=== PATIENT | female | born 1950 | race Caucasian/White ===

== ENCOUNTER 2017-03-01 11:49 | Inpatient (IN) | payer SELFPAY ==
[~2017-03-01] VITALS: Ht 177.8 cm; Wt 90.3 kg
[2017-03-01] VITALS (8 sets, daily range): BP systolic 127–157; BP diastolic 55–77; PULSE 63–71; RESP 18–20; TEMP 96.9–98.3; O2SAT 91–96
[2017-03-01] MEDS ORDERED: METO50TA PO (12:07)
[2017-03-01] MEDS ORDERED: HYZA100T6 PO (12:07)
[2017-03-01] MEDS ORDERED: ASPI325T PO (12:07)
[2017-03-01] MEDS ORDERED: SODIUM CHLOR 0.9% 1000 ML INJ 1,000 ML IV SCH (12:08)
[2017-03-01] MEDS ORDERED: ONDANSETRON HCL 4 MG/2 ML VIAL IVP ONE (12:15)
[2017-03-01 12:22] LABS: AUTOMATED NEUTROPHIL # 18.8 TH/MM3 (1.8-7.7); BASOPHIL % 0.1 % (0.0-2.0); EOSINOPHIL % 0.2 % (0.0-4.0); HEMATOCRIT 30.5 % (35.0-46.0); LYMPHOCYTE # 1.3 TH/MM3 (1.0-4.8); MEAN CELL VOLUME 83.4 FL (80.0-100.0); MEAN CORPUSCULAR HGB CONC 33.5 % (32.0-36.0); MONO % 7.6 % (0.0-8.0); NEUT % 86.1 % (16.0-70.0); PLATELET COUNT 424 TH/MM3 (150-450); RED BLOOD COUNT 3.66 MIL/MM3 (4.00-5.30); RED CELL DISTRIBUTION WIDTH 13.2 % (11.6-17.2); WHITE BLOOD COUNT 21.8 TH/MM3 (4.0-11.0)
[2017-03-01 12:25] LABS: HEMO FLAGS AUTO DIFF
[2017-03-01 12:45] LABS: SCAN/DIFF AUTO DIFF CONFIRMED
--- NOTE | 2017-03-01 12:45 | PD ---
HPI Chief Complaint: GI Complaint Time Seen by Provider: 12:40 Travel History International Travel<30 days: No Contact w/Intl Traveler<30days: No Traveled to known affect area: No History of Present Illness HPI 66-year-old female that presents to the ED for evaluation of nausea vomiting and cold-like symptoms. Per patient she's had this for about 3 weeks now. Patient with a month ago she quit smoking. Per patient she was initially very short of breath and now she is better. Per patient she has no chest pain or abdominal pain at any time. Per patient she feels nauseous and with eating and she's not been able to keep anything other than fluids. She denies any dysphagia. She denies any abdominal discomfort. She does state having diarrhea but she believes that this is more because she is for the most part eating and liquid diet. She states that currently she has no pain but she feels weak and dehydrated. No history of diabetes. No urinary symptoms. No sick contacts. She is originally from [place] and came here to visit as one of her uncles broke his hip and she came here to see him. She states that the cough is improving as well as the cold-like symptoms with the nausea and vomiting continues. She was actually going to go [place] today but she feels weak and she came here to get evaluated because of it. Allergy to iodine. She has been taking [id number] Mucinex with minimal relief. [facility] Past Medical History Diminished Hearing: No Hypertension: Yes Influenza Vaccination: Yes ?: Not Past Surgical History Appendectomy: Yes Social History Alcohol Use: No Tobacco Use: No Allergies-Medications (Allergen,Severity, Reaction): Coded Allergies: iodine (Verified Allergy, Severe, Rash, 03/01/17) HIVE AND ITCHING Reported Meds & Prescriptions Reported Meds & Active Scripts Active Reported Aspirin 325 Mg Tab 325 Mg PO DAILY Metoprolol Tartrate 50 Mg Tab 50 Mg PO DAILY Hyzaar (Losartan-Hydrochlorothiazide) 100-25 Mg Tab 1 Tab PO DAILY Review of Systems Except as stated in HPI: all other systems reviewed are Neg Physical Exam Narrative GENERAL: SKIN: Warm and dry. HEAD: Atraumatic. Normocephalic. EYES: Pupils equal and round. No scleral icterus. No injection or drainage. ENT: No nasal bleeding or discharge. Mucous membranes pink and moist. Tongue is midline. No uvula deviation. NECK: Trachea midline. No JVD. CARDIOVASCULAR: Regular rate and rhythm. No murmurs, S3, S4. RESPIRATORY: No accessory muscle use. Clear to auscultation. Breath sounds equal bilaterally. GASTROINTESTINAL: Abdomen soft, non-tender, nondistended. Hepatic and splenic margins not palpable. MUSCULOSKELETAL: Extremities without clubbing, cyanosis, or edema. No obvious deformities. Full range of motion of the upper and lower extremities bilaterally. 2+ pulses bilaterally. NEUROLOGICAL: Awake and alert. No obvious cranial nerve deficits. Motor grossly within normal limits. Five out of 5 muscle strength in the arms and legs. Normal speech. PSYCHIATRIC: Appropriate mood and affect; insight and judgment normal. Data Data Last Documented VS Vital Signs Date Time Temp Pulse Resp B/P (MAP) Pulse Ox O2 Delivery O2 Flow Rate FiO2 03/01/17 14:32 63 18 141/55 (83) 96 Nasal Cannula 2.00 03/01/17 11:59 98.3 Orders Orders Complete Blood Count With Diff (03/01/17 12:08) Comprehensive Metabolic Panel (03/01/17 12:08) Lipase (03/01/17 12:08) Lactic Acid (03/01/17 12:08) Urinalysis - C+S If Indicated (03/01/17 12:08) Iv Access Insert/Monitor (03/01/17 12:08) Ecg Monitoring (03/01/17 12:08) Oximetry (03/01/17 12:08) Ondansetron Inj (Zofran Inj) (03/01/17 12:15) Sodium Chlor 0.9% 1000 Ml Inj (Ns 1000 M (03/01/17 12:08) Chest, Single Ap (03/01/17 12:08) Influenzae A/B Antigen (03/01/17 12:08) Sodium Chlor 0.9% 1000 Ml Inj (Ns 1000 M (03/01/17 13:00) Potassium Chloride (Kcl) (03/01/17 13:00) Magnesium Sulfate 1 Gm Premix (Magnesium (03/01/17 13:00) Electrocardiogram (03/01/17 ) Potassium Chloride (Kcl) (03/01/17 13:15) Troponin I (03/01/17 13:08) Ckmb (Isoenzyme) Profile (03/01/17 13:08) Potassium Chlor 10 Meq Premix (Kcl 10 Me (03/01/17 13:15) Ventilation & Perfusion Scan (03/01/17 ) Ct Thorax/ Chest Wo Iv Contras (03/01/17 ) Us Leg Venous Doppler Bilat (03/01/17 ) Blood Culture (03/01/17 13:29) D-Dimer (03/01/17 13:44) Azithromycin Inj (Zithromax Inj) (03/01/17 13:45) Ceftriaxone Inj (Rocephin Inj) (03/01/17 13:45) Admit Order (Ed Use Only) (03/01/17 14:44) Labs Laboratory Tests Test 03/01/17 12:10 03/01/17 12:14 D-Dimer Quantitative (PE/DVT) 1.27 MG/L FEU White Blood Count 21.8 TH/MM3 Red Blood Count 3.66 MIL/MM3 Hemoglobin 10.2 GM/DL Hematocrit 30.5 % Mean Corpuscular Volume 83.4 FL Mean Corpuscular Hemoglobin 28.0 PG Mean Corpuscular Hemoglobin Concent 33.5 % Red Cell Distribution Width 13.2 % Platelet Count 424 TH/MM3 Mean Platelet Volume 7.1 FL Neutrophils (%) (Auto) 86.1 % Lymphocytes (%) (Auto) 6.0 % Monocytes (%) (Auto) 7.6 % Eosinophils (%) (Auto) 0.2 % Basophils (%) (Auto) 0.1 % Neutrophils # (Auto) 18.8 TH/MM3 Lymphocytes # (Auto) 1.3 TH/MM3 Monocytes # (Auto) 1.7 TH/MM3 Eosinophils # (Auto) 0.0 TH/MM3 Basophils # (Auto) 0.0 TH/MM3 CBC Comment AUTO DIFF Differential Comment AUTO DIFF CONFIRMED Blood Urea Nitrogen 27 MG/DL Creatinine 1.40 MG/DL Random Glucose 145 MG/DL Total Protein 7.9 GM/DL Albumin 2.3 GM/DL Calcium Level 8.7 MG/DL Alkaline Phosphatase 295 U/L Aspartate Amino Transf (AST/SGOT) 7 U/L Alanine Aminotransferase (ALT/SGPT) 15 U/L Total Bilirubin 0.4 MG/DL Sodium Level 133 MEQ/L Potassium Level 2.3 MEQ/L Chloride Level 93 MEQ/L Carbon Dioxide Level 31.4 MEQ/L Anion Gap 9 MEQ/L Estimat Glomerular Filtration Rate 38 ML/MIN Lactic Acid Level 1.3 mmol/L Total Creatine Kinase 26 U/L Troponin I LESS THAN 0.02 NG/ML Lipase 80 U/L MDM Medical Decision Making Medical Screen Exam Complete: Yes Emergency Medical Condition: Yes Medical Record Reviewed: Yes Interpretation(s) Influenza is negative CBC & BMP Diagram 03/01/17 12:14 Total Protein 7.9, Albumin 2.3 L, Calcium Level 8.7, Alkaline Phosphatase 295 H , Aspartate Amino Transf (AST/SGOT) 7 L, Alanine Aminotransferase (ALT/SGPT) 15 , Total Bilirubin 0.[address] depressions on V4-V6 per my attending Dr Jarquin. No ST elevation Last Impressions Chest X-Ray 03/01/17 1208 Signed Impressions: Service Date/Time: Wednesday, March 01, 2017 12:46 - CONCLUSION: Background lung changes characteristic of obstructive airways disease. No acute cardiopulmonary abnormality is identified. Peng Monsalve MD Last Impressions Chest X-Ray 03/01/17 1208 Signed Impressions: Service Date/Time: Wednesday, March 01, 2017 12:46 - CONCLUSION: Background lung changes characteristic of obstructive airways disease. No acute cardiopulmonary abnormality is identified. ePng Monsalve MD Chest CT 03/01/17 0000 Signed Impressions: Service Date/Time: Wednesday, March 01, 2017 13:49 - CONCLUSION: 1. There are COPD changes. There is tubular bronchiectasis with inflammatory appearing tree in bud infiltrate suggesting mucus impaction with inflammatory changes in the end in airway. Atypical pneumonia could also have this appearance as well. 2. 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 Benjie Cohen MD Differential Diagnosis Nausea and vomiting versus viral illness versus influenza versus pneumonia versus acute abdomen versus pancreatitis versus dehydration versus kidney failure versus nicotine withdrawal Narrative Course 66-year-old female that presents to the ED for evaluation of cold-like symptoms and nausea and vomiting. Patient was properly examined and was found to have signs and symptoms of unclear etiology at this time. He does appear to be likely viral in nature. Labs and imaging were ordered. Patient does look a little dehydrated she she will be given fluids as well as antiemetics IV. Labs and imaging showed mildly elevated monocyte count as well as low potassium. EKG was done because of this and shows some ST depressions. My attending Dr. Jarquin evaluated the patient with me and evaluated the patient and recommends cardiac enzymes as well as replenishment of potassium and CT as well as ultrasound and VQ scan to rule out PE as well as DVT secondary to recent history of travel and hypoxia. CT did shows inflammatory changes likely pneumonia. Aneurysm noted as well. Will admit to [facility]. patient told this and agrees. Case discussed with Dr Orozco who agrees to admission. Diagnosis Primary Impression: Pneumonia Qualified Codes: J18.9 - Pneumonia, unspecified organism Additional Impressions: Hypokalemia Hypoxia Admitting Information Admitting Physician Requests: Admit Roshan Alicia Mar 01, 2017 12:45
[2017-03-01 12:48] LABS: ALKALINE PHOSPHATASE 295 U/L (45-117); ALT (GPT) 15 U/L (10-53); ANION GAP 9 MEQ/L (5-15); AST (GOT) 7 U/L (15-37); BICARBONATE 31.4 MEQ/L (21.0-32.0); BLOOD UREA NITROGEN 27 MG/DL (7-18); CHLORIDE 93 MEQ/L (98-107); GLOMERULAR FILTRATION RATE 38 ML/MIN (>89); SODIUM (NA) 133 MEQ/L (136-145); TOTAL BILIRUBIN ADULT 0.4 MG/DL (0.2-1.0)
[2017-03-01 12:49] LABS: POTASSIUM 2.3 MEQ/L (3.5-5.1)
[2017-03-01] MEDS: MAGNESIUM SULFATE 1 GM PREMIX 100 ML IV SCH ×2 (12:57→14:04)
[2017-03-01] MEDS ORDERED: POTASSIUM CHLORIDE 10 MEQ CONTROLLED RELEASE TAB PO ONE (13:00)
[2017-03-01] MEDS ORDERED: SODIUM CHLOR 0.9% 1000 ML INJ 1,000 ML IV ONE (13:00)
[2017-03-01] MEDS ORDERED: POTASSIUM CHLOR 10 MEQ PREMIX 100 ML IV ONE (13:15)
[2017-03-01] MEDS ORDERED: POTASSIUM CHLORIDE 20 MEQ CONTROLLED RELEASE TAB PO ONE (13:15)
--- NOTE | 2017-03-01 13:15 | RADRPT ---
EXAM DATE/TIME: 03/01/2017 12:46 [facility] COMPARISON: No previous studies available for comparison. INDICATIONS : Nausea and vomiting. MEDICAL HISTORY : None. SURGICAL HISTORY : None. ENCOUNTER: Initial ACUITY: 3 weeks PAIN SCORE: 3/10 LOCATION: Bilateral chest FINDINGS: 2 AP views of the chest demonstrate a normal-sized cardiac silhouette. There is initial prominence an d lower lung zones with mild lucency in the upper lung zones. No effusion, consolidation, or pneumoth orax is identified. Bones and soft tissues demonstrate no acute abnormality. No free air is seen bene ath the hemidiaphragms. CONCLUSION: Background lung changes characteristic of obstructive airways disease. No acute cardiopulmonary abnor mality is identified. Peng Monsalve MD on March 01, 2017 at 13:12 Board Certified Radiologist. This report was verified electronically.
--- NOTE | 2017-03-01 13:23 | PD ---
Physical Exam Date Seen by Provider: Mar 01, 2017 Data Data Last Documented VS Vital Signs Date Time Temp Pulse Resp B/P (MAP) Pulse Ox O2 Delivery O2 Flow Rate FiO2 03/01/17 12:21 68 18 127/60 (82) 96 Nasal Cannula 2.00 03/01/17 11:59 98.3 Orders Orders Complete Blood Count With Diff (03/01/17 12:08) Comprehensive Metabolic Panel (03/01/17 12:08) Lipase (03/01/17 12:08) Lactic Acid (03/01/17 12:08) Urinalysis - C+S If Indicated (03/01/17 12:08) Iv Access Insert/Monitor (03/01/17 12:08) Ecg Monitoring (03/01/17 12:08) Oximetry (03/01/17 12:08) Ondansetron Inj (Zofran Inj) (03/01/17 12:15) Sodium Chlor 0.9% 1000 Ml Inj (Ns 1000 M (03/01/17 12:08) Chest, Single Ap (03/01/17 12:08) Influenzae A/B Antigen (03/01/17 12:08) Sodium Chlor 0.9% 1000 Ml Inj (Ns 1000 M (03/01/17 13:00) Electrocardiogram (03/01/17 ) Potassium Chloride (Kcl) (03/01/17 13:00) Magnesium Sulfate 1 Gm Premix (Magnesium (03/01/17 13:00) Electrocardiogram (03/01/17 ) Potassium Chloride (Kcl) (03/01/17 13:15) Troponin I (03/01/17 13:08) Ckmb (Isoenzyme) Profile (03/01/17 13:08) Potassium Chlor 10 Meq Premix (Kcl 10 Me (03/01/17 13:15) Ventilation & Perfusion Scan (03/01/17 ) Labs Laboratory Tests Test 03/01/17 12:14 White Blood Count 21.8 TH/MM3 Red Blood Count 3.66 MIL/MM3 Hemoglobin 10.2 GM/DL Hematocrit 30.5 % Mean Corpuscular Volume 83.4 FL Mean Corpuscular Hemoglobin 28.0 PG Mean Corpuscular Hemoglobin Concent 33.5 % Red Cell Distribution Width 13.2 % Platelet Count 424 TH/MM3 Mean Platelet Volume 7.1 FL Neutrophils (%) (Auto) 86.1 % Lymphocytes (%) (Auto) 6.0 % Monocytes (%) (Auto) 7.6 % Eosinophils (%) (Auto) 0.2 % Basophils (%) (Auto) 0.1 % Neutrophils # (Auto) 18.8 TH/MM3 Lymphocytes # (Auto) 1.3 TH/MM3 Monocytes # (Auto) 1.7 TH/MM3 Eosinophils # (Auto) 0.0 TH/MM3 Basophils # (Auto) 0.0 TH/MM3 CBC Comment AUTO DIFF Differential Comment AUTO DIFF CONFIRMED Blood Urea Nitrogen 27 MG/DL Creatinine 1.40 MG/DL Random Glucose 145 MG/DL Total Protein 7.9 GM/DL Albumin 2.3 GM/DL Calcium Level 8.7 MG/DL Alkaline Phosphatase 295 U/L Aspartate Amino Transf (AST/SGOT) 7 U/L Alanine Aminotransferase (ALT/SGPT) 15 U/L Total Bilirubin 0.4 MG/DL Sodium Level 133 MEQ/L Potassium Level 2.3 MEQ/L Chloride Level 93 MEQ/L Carbon Dioxide Level 31.4 MEQ/L Anion Gap 9 MEQ/L Estimat Glomerular Filtration Rate 38 ML/MIN Lactic Acid Level 1.3 mmol/L Lipase 80 U/L MDM Medical Record Reviewed: Yes Supervised Visit with LES: Yes Differential Diagnosis Differential includes PE, pneumonia, electrolyte abnormality, ACS, arrhythmia Narrative Course I, Dr. Jarquin, have reviewed the advance practice practitioner's documentation and am in agreement, met with the patient face to face, made the diagnosis, and the medical decision making was done by me. *My assessment and Findings: Patient is a 66-year-old female who presents to emergency room with complaints of nausea, vomiting, cough and congestion. Patient reports that symptoms have been ongoing for the past 3 weeks, patient reports that she recently drove from [place] to [place] to take care of her sick family member. Patient reports that she has been feeling short of breath, she did quit smoking cigarettes 3 weeks ago, oxygen dependent. Patient reports that she has been having shortness breath at rest as well as on exertion. Patient denies any chest pain , abdominal pain this time, reports increased nausea and vomiting decreased appetite. Vital Signs Date Time Temp Pulse Resp B/P (MAP) Pulse Ox O2 Delivery O2 Flow Rate FiO2 03/01/17 12:21 68 18 127/60 (82) 96 Nasal Cannula 2.00 03/01/17 11:59 98.3 68 18 157/68 (36) 91 Patient is hypoxic with a pulse ox of 91% on room air, she is not oxygen dependent. Patient with ST segment depressions anterolaterally, patient with no history of RI, ACS, she does report history of hypertension. Patient also with a potassium of 2.3. Patient's potassium will be replenished. Patient with no chest pain this time, Trops were ordered as she does have ST segment depressions with no prior EKG to compare. Patient has hypoxic on room air, VQ scan as well as Doppler ultrasounds ordered to rule out PE/DVT as patient does have an iodine allergy. Ultimate disposition for patient is admission to the hospital. Patient does have a 21,800 white count. lactate 1.3 - chest xray with no obvious infiltrate. Ct of chest ordered for further evaluation of her symptoms Soo Jarquin DO Mar 01, 2017 13:23
[2017-03-01 13:34] LABS: CREATINE KINASE 26 U/L (26-192)
[2017-03-01] MEDS ORDERED: cefTRIAXone INJ 1,000 MG in SODIUM CHLORIDE 0.9% INJ 100 ML IV ONE (13:45)
[2017-03-01] MEDS ORDERED: AZITHROMYCIN INJ 500 MG in SODIUM CHLOR 0.9% 250 ML INJ 250 ML IV ONE (13:45)
--- NOTE | 2017-03-01 14:07 | RADRPT ---
EXAM DATE/TIME: 03/01/2017 13:49 [facility] COMPARISON: CHEST SINGLE AP, March 01, 2017, 12:46. INDICATIONS : Nausea, vomiting and fever. RADIATION DOSE: 13.27 CTDIvol (mGy) MEDICAL HISTORY : Hypertension. SURGICAL HISTORY : Appendectomy. ENCOUNTER: Initial ACUITY: 3 weeks PAIN SCALE: 3/10 LOCATION: chest TECHNIQUE: Volumetric scanning of the chest was performed. Using automated exposure control and adjustment of t he mA and/or kV according to patient size, radiation dose was kept as low as reasonably achievable to obtain optimal diagnostic quality images. DICOM format image data is available electronically for r eview and comparison. Follow-up recommendations for detected pulmonary nodules are based at a minimum on nodule size and pa tient risk factors according to Fleischner Society Guidelines. FINDINGS: LUNGS: The examination demonstrates moderate tubular bronchiectasis involving both the upper and lower lobes . There is interstitial prominence with a tree in bud appearance of the interstitium. Findings would be most suggestive of COPD changes with bronchiectasis and mucus impaction though atypical mycobacter ial infection can have this appearance as well. No suspicious mass lesions are noted within the pulmo nary parenchyma. PLEURAE: There is no pleural thickening or pleural effusion. MEDIASTINUM: The heart is normal in size. There is atherosclerotic plaquing in the coronary arteries. The aortic a rch is densely calcified and aneurysmal measuring 3.4 cm. The descending thoracic aorta is aneurysmal in its mid segment measuring 3.6 cm. The aorta measures 3.9 cm at the diaphragmatic hiatus. No signi ficant hilar or mediastinal adenopathy is seen. AXILLAE: Within normal limits. No lymphadenopathy. MUSCULOSKELETAL: There are degenerative changes within the thoracic spine. MISCELLANEOUS: The visualized upper abdominal organs demonstrate no acute abnormality. CONCLUSION: 1. There are COPD changes. There is tubular bronchiectasis with inflammatory appearing tree in bud in filtrate suggesting mucus impaction with inflammatory changes in the end in airway. Atypical pneumoni a could also have this appearance as well. 2. 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 Benjie Cohen MD on March 01, 2017 at 14:00 Board Certified Radiologist. This report was verified electronically.
--- NOTE | 2017-03-01 14:43 | RADRPT ---
EXAM DATE/TIME: 03/01/2017 14:07 [facility] COMPARISON: No previous studies available for comparison. INDICATIONS : Shortness of breath. MEDICAL HISTORY : Hypertension. SURGICAL HISTORY : Appendectomy. ENCOUNTER: Initial ACUITY: 2 day PAIN SCORE: 0/10 LOCATION: Bilateral legs. TECHNIQUE: Venous ultrasound of the left and right leg was performed from the inguinal ligament to the proximal calf. Real-time, color Doppler and spectral tracing, compression and augmentation techniques were us ed. FINDINGS: RIGHT LEG: There is normal compressibility of the deep venous system from the inguinal region to the proximal ca lf. No echogenic clot is seen in the lumen of the common femoral, femoral, popliteal, and posterior tibial veins. There is a normal response of the venous system to proximal and distal augmentation an d respiration. LEFT LEG: There is normal compressibility of the deep venous system from the inguinal region to the proximal ca lf. No echogenic clot is seen in the lumen of the common femoral, femoral, popliteal, and posterior tibial veins. There is a normal response of the venous system to proximal and distal augmentation an d respiration. CONCLUSION: No DVT in either lower extremity. Ethan Bravo MD on March 01, 2017 at 14:41 Board Certified Radiologist. This report was verified electronically.
[2017-03-01] MEDS ORDERED: RESP: ALBUTEROL 2.5 MG/IPRATROPIUM 0.5 MG NEB (PRN) INH (14:45)
[2017-03-01] MEDS ORDERED: SODIUM CHLORIDE 0.9% FLUSH 10 ML FLUSH IV FLUSH PRN (14:45)
[2017-03-01] MEDS ORDERED: LEVOFLOXACIN 750 MG PREMIX INJ 150 ML IV SCH (15:00)
--- NOTE | 2017-03-01 15:40 | RADRPT ---
EXAM DATE/TIME: 03/01/2017 14:53 [facility] COMPARISON: US LEG BILATERAL VENOUS DOPPLER, March 01, 2017, 14:07. CHEST SINGLE AP, March 01, 2017, 12:46. EXTERNAL COMPARISON : INDICATIONS : Dyspnea. Pneumonia. DOSE: 8.5 mCi Tc99m MAA IV 1.2 mCi Tc99m DTPA aerosol MEDICAL HISTORY : Hypertension. SURGICAL HISTORY : Appendectomy. ENCOUNTER: Initial ACUITY: 3 weeks PAIN SCALE: 0/10 LOCATION: chest TECHNIQUE: Following five minutes of tidal breathing of DTPA aerosol, planar images of the lungs were performed in eight projections. The patient was then injected with MAA, and eight-view perfusion scan was perf ormed. FINDINGS: There is a heterogeneous distribution of aerosol delivery to the lungs with clumping of activity in t he large airways likely related to obstructive airways disease. There is focal decreased of ventilati on involving the superior aspect of the right lower lobe and questionable segmental defect in the lef t upper lobe. There is also possible left lower lobe decreased ventilation The perfusion lung scan demonstrates decreased perfusion in the right lower lobe and in the left uppe r lobe. There is also decreased perfusion in the left lower lobe on the LPO image. Recent chest x-ray demonstrates clear lungs with changes of obstructive airways disease/emphysema. CONCLUSION: 2 and possibly 3 matched defects are identified. Findings are intermediate probability for PE. Peng Monsalve MD on March 01, 2017 at 15:33 Board Certified Radiologist. This report was verified electronically.
[2017-03-01 15:42] LABS: GLUCOSE,URINE NEG (NEG); KETONE, URINE NEG (NEG); NITRITE,URINE NEG (NEG); PH, URINE 5.5 (5.0-8.5)
[2017-03-01 15:46] LABS: BLOOD, URINE TRACE (NEG)
[2017-03-01 15:50] LABS: URINE COLOR YELLOW (YELLW/STRAW)
[2017-03-01 15:51] LABS: COMMENT (UR) CULT NOT INDICATED; CULTURE IF INDICATED CULT NOT INDICATED; RBC, URINE 0-3 /hpf (0-3); SQUAMOUS EPITHELIAL CELL URINE 0-5 /hpf (0-5)
[2017-03-01] MEDS ORDERED: metroNIDAZOLE 500 MG INJ 100 ML IV SCH (16:00)
[2017-03-01] MEDS: RESP: ALBUTEROL 2.5 MG/IPRATROPIUM 0.5 MG NEB (SCH) INH ×2 (16:02→21:17)
[2017-03-01] MEDS ORDERED: Vancomycin Consult Pharmacy 1 EA OTHER SCH (16:30)
[2017-03-01] MEDS ORDERED: VANCOMYCIN INJ 1,000 MG in SODIUM CHLOR 0.9% 250 ML INJ 250 ML IV ONE (16:30)
--- NOTE | 2017-03-01 16:30 | HHI.HP ---
[facility] Service [place] [facility] Primary Care Physician Non-Staff Admission Diagnosis acute pneumonia, hypoxia, hypokalemia Diagnoses: (1) Healthcare-associated pneumonia Diagnosis: Principal (2) Hypoxia Diagnosis: Principal (3) Hypokalemia Diagnosis: Principal (4) Acute kidney injury Diagnosis: Principal (5) Leucocytosis Diagnosis: Principal Chief Complaint: Sinus congestion, cough, phlegm production, nausea, vomiting, weakness Travel History International Travel<30 Days: No Contact w/Intl Traveler <30 Da: No Traveled to Known Affected Are: No Sepsis Criteria SIRS Criteria (2 or more): WBC > 43795, < 4000 or > 10% bands Sepsis Criteria (SIRS+source): Infect source susp/known History of Present Illness Written by Harsh Martin, acting as scribe for Dr. Orozco on 03/01/17 at 16: 09. 66-year-old female with known history of hypertension, stroke, tobacco use who presented to hospital because of flulike symptoms to include sinus congestion, cough, phlegm production, weakness, fever, nausea, vomiting, diaphoresis. Patient states that she came down to stay with her uncle and he had fallen and fractured his hip. She has been going and visiting him in the facility 2 times a day since he fell. Her symptoms started approximately 3 weeks ago. Over the last 2-3 days she has been experiencing worsening upper respiratory symptoms and constitutional symptoms to include sinus congestion, cough with yellow phlegm production, weakness, nausea, vomiting, diarrhea, fever. Patient has been using Mucinex without any significant improvement. Patient indicates that she has had nausea and vomiting to the point where she can only tolerate liquids at this time. She does not eat anything solid for 2- 3 days. She has developed watery stools. Patient had workup done emergency department found to have multiple medical illnesses with hypoxia, pneumonia, leukocytosis, acute kidney injury. Patient significantly ill clinically and will be admitted for further evaluation. IV antibiotics. Review of Systems Constitutional: COMPLAINS OF: Fever Ears, nose, mouth, throat: COMPLAINS OF: Running Nose, Sinus Pain Respiratory: COMPLAINS OF: Cough, Sputum production Gastrointestinal: COMPLAINS OF: Diarrhea, Nausea, Vomiting Except as stated in HPI: all other systems reviewed are Neg Past Family Social History Past Medical History Hypertension Stroke Past Surgical History Appendectomy at age 21 Reported Medications Reported Meds & Active Scripts Active Reported Aspirin 325 Mg Tab 325 Mg PO DAILY Metoprolol Tartrate 50 Mg Tab 50 Mg PO DAILY Hyzaar (Losartan-Hydrochlorothiazide) 100-25 Mg Tab 1 Tab PO DAILY Allergies: Coded Allergies: iodine (Verified Allergy, Severe, Rash, 03/01/17) HIVE AND ITCHING Family History Reviewed is significant for father with prostate cancer. Aunt with diabetes Social History Patient quit smoking 1 month ago, prior to that she smoked one pack a cigarettes a day for 40 years. Denies any alcohol or illicit drugs Physical Exam Vital Signs Vital Signs Date Time Temp Pulse Resp B/P (MAP) Pulse Ox O2 Delivery O2 Flow Rate FiO2 03/01/17 16:05 92 Nasal Cannula 2.00 03/01/17 15:42 70 18 141/77 (98) 96 Nasal Cannula 2.00 03/01/17 14:32 63 18 141/55 (83) 96 Nasal Cannula 2.00 03/01/17 12:21 68 18 127/60 (82) 96 Nasal Cannula 2.00 03/01/17 12:10 78 91 Room Air 03/01/17 11:59 98.3 68 18 157/68 (97) 91 Physical Exam GENERAL: Well-developed, well-nourished, in no acute distress. alert and orientated HEENT: Head is normocephalic without any lesions or masses noted. Facial features are symmetric. Eyes: Pupils equal round reactive to light. Extraocular muscles are intact. Conjunctivae were clear. Oropharyngeal: Pharynx erythematous without any exudates. Tongue is midline without deviation. Buccal mucosa is dry without any masses or lesions NECK: Supple without any masses. Trachea midline no deviation. No JVD, no bruits are appreciated CARDIAC: Regular rhythm, regular rate. S1/S2 are heard. No murmurs gallops or rubs. LUNGS: Bibasilar diminished breath sounds with minimal wheeze. No rhonchi or rales. No use of accessory muscles on inspiration or expiration. ABDOMEN: Soft, nontender. Nondistended. Bowel sounds heard in all 4 quadrants. No organomegaly or masses. Negative rebound, negative guarding EXTREMITIES: No edema, pulses are equal bilaterally. No cyanosis or clubbing NEUROLOGY: Mood and affect appear appropriate. Cranial nerves II through XII grossly intact. Muscle strength 5/5 in upper and lower extremities bilaterally. Deep tendon reflexes are 2+ in upper and lower extremities bilaterally. Laboratory Laboratory Tests Test 03/01/17 12:10 03/01/17 12:14 03/01/17 15:35 D-Dimer Quantitative (PE/DVT) 1.27 White Blood Count 21.8 Red Blood Count 3.66 Hemoglobin 10.2 Hematocrit 30.5 Mean Corpuscular Volume 83.4 Mean Corpuscular Hemoglobin 28.0 Mean Corpuscular Hemoglobin Concent 33.5 Red Cell Distribution Width 13.2 Platelet Count 424 Mean Platelet Volume 7.1 Neutrophils (%) (Auto) 86.1 Lymphocytes (%) (Auto) 6.0 Monocytes (%) (Auto) 7.6 Eosinophils (%) (Auto) 0.2 Basophils (%) (Auto) 0.1 Neutrophils # (Auto) 18.8 Lymphocytes # (Auto) 1.3 Monocytes # (Auto) 1.7 Eosinophils # (Auto) 0.0 Basophils # (Auto) 0.0 CBC Comment AUTO DIFF Differential Comment AUTO DIFF CONFIRMED Blood Urea Nitrogen 27 Creatinine 1.40 Random Glucose 145 Total Protein 7.9 Albumin 2.3 Calcium Level 8.7 Alkaline Phosphatase 295 Aspartate Amino Transf (AST/SGOT) 7 Alanine Aminotransferase (ALT/SGPT) 15 Total Bilirubin 0.4 Sodium Level 133 Potassium Level 2.3 Chloride Level 93 Carbon Dioxide Level 31.4 Anion Gap 9 Estimat Glomerular Filtration Rate 38 Lactic Acid Level 1.3 Total Creatine Kinase 26 Troponin I LESS THAN 0.02 Lipase 80 Urine Color YELLOW Urine Turbidity CLEAR Urine pH 5.5 Urine Specific [place] 1.011 Urine Protein TRACE Urine Glucose (UA) NEG Urine Ketones NEG Urine Occult Blood TRACE Urine Nitrite NEG Urine Bilirubin NEG Urine Leukocyte Esterase NEG Urine RBC 0-3 Urine WBC 3-5 Urine Squamous Epithelial Cells 0-5 Microscopic Urinalysis Comment CULT NOT INDICATED Date/Time Source Procedure Growth Status 03/01/17 13:35 Blood Peripheral Aerobic Blood Culture Pending Received 03/01/17 13:35 Blood Peripheral Anaerobic Blood Culture Pending Received 03/01/17 12:10 Nasal Washing Influenza Types A,B Antigen ([facility]) - Final NEGATIVE FOR FLU A AND B ANTIGEN.... Complete 03/01/17 15:35 Urine Catheterized Urine Streptococcus pneumoniae Antigen (M Pending Received Result Diagram: 03/01/17 1214 03/01/17 1214 Imaging Last Impressions Chest X-Ray 03/01/17 1208 Signed Impressions: Service Date/Time: Wednesday, March 01, 2017 12:46 - CONCLUSION: Background lung changes characteristic of obstructive airways disease. No acute cardiopulmonary abnormality is identified. Pneg Monsalve MD Lung Scan-VQ Nuclear Medicine 03/01/17 0000 Signed Impressions: Service Date/Time: Wednesday, March 01, 2017 14:53 - CONCLUSION: 2 and possibly 3 matched defects are identified. Findings are intermediate probability for PE. Peng Monsalve MD Lower Extremity Ultrasound 03/01/17 0000 Signed Impressions: Service Date/Time: Wednesday, March 01, 2017 14:07 - CONCLUSION: No DVT in either lower extremity. Ethan Bravo MD Chest CT 03/01/17 0000 Signed Impressions: Service Date/Time: Wednesday, March 01, 2017 13:49 - CONCLUSION: 1. There are COPD changes. There is tubular bronchiectasis with inflammatory appearing tree in bud infiltrate suggesting mucus impaction with inflammatory changes in the end in airway. Atypical pneumonia could also have this appearance as well. 2. 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 Benjie Cohen MD Septic Shock Reassessment Heart: Regular rate and rhythm Lungs: Diminished Skin: Warm Peripheral Pulses: Bounding Right Radial Bounding Left Radial Capillary Refill: Brisk, <2 seconds Caprini VTE Risk Assessment Caprini VTE Risk Assessment: Mod/High Risk (score >= 2) Caprini Risk Assessment Model Point Value = 1 Point Value = 2 Point Value = 3 Point Value = 5 Age 41-60 Minor surgery BMI > 25 kg/m2 Swollen legs Varicose veins or History of unexplained or recurrent spontaneous Oral contraceptives or hormone replacement Sepsis (< 1 month) Serious lung disease, including pneumonia (< 1 month) Abnormal pulmonary function Acute myocardial infarction Congestive heart failure (< 1 month) History of inflammatory bowel disease Medical patient at bed rest Age 61-74 Arthroscopic surgery Major open surgery (> 45 min) Laparoscopic surgery (> 45 min) Malignancy Confined to bed (> 72 hours) Immobilizing plaster cast Central venous access Age >= 75 History of VTE Family history of VTE Factor V Leiden Prothrombin [id number] Lupus anticoagulant Anticardiolipin antibodies Elevated serum homocysteine Heparin-induced thrombocytopenia Other congenital or acquired thrombophilia Stroke (< 1 month) Elective arthroplasty Hip, pelvis, or leg fracture Acute spinal cord injury (< 1 month) Prophylaxis Regimen Total Risk Factor Score Risk Level Prophylaxis Regimen 0-1 Low Early ambulation 2 Moderate Order ONE of the following: *Sequential Compression Device (SCD) *Heparin 5000 units SQ BID 3-4 Higher Order ONE of the following medications: *Heparin 5000 units SQ TID *Enoxaparin/Lovenox 40 mg SQ daily (WT < 150 kg, CrCl > 30 mL/min) *Enoxaparin/Lovenox 30 mg SQ daily (WT < 150 kg, CrCl > 10-29 mL/min) *Enoxaparin/Lovenox 30 mg SQ BID (WT < 150 kg, CrCl > 30 mL/min) AND/OR *Sequential Compression Device (SCD) 5 or more Highest Order ONE of the following medications: *Heparin 5000 units SQ TID (Preferred with Epidurals) *Enoxaparin/Lovenox 40 mg SQ daily (WT < 150 kg, CrCl > 30 mL/min) *Enoxaparin/Lovenox 30 mg SQ daily (WT < 150 kg, CrCl > 10-29 mL/min) *Enoxaparin/Lovenox 30 mg SQ BID (WT < 150 kg, CrCl > 30 mL/min) AND *Sequential Compression Device (SCD) Assessment and Plan Assessment and Plan acute pneumonia CAP vs Healthcare associated pneumonia with hypoxia on a basis of emphesyma and tobaco abuse in light of recent frequent visit and stay sat hosital for visiting relative will initiate HCAP regimen with Vancomycin, Levaquin, Zosyn, Zithromax has been started in ED long-standing tobacco use, possible underlying chronic affective pulmonary disease CT abnormality which could indicate atypical pneumonia Await further cultures for narrowing of antibiotic coverage Obtain sputum culture, Legionella, strep pneumonia testing, Influenza testing was negative Duo nebs every 6 hours and every 4 hours as needed Robitussin-DM for cough Leukocytosis with left shift Likely secondary to pneumonia Continue follow blood cultures Acute kidney injury Continue IV fluids Monitor renal function Hypokalemia, severe Replace and continue to monitor Hypertension Continue home medications DVT prevention Sequential compression devices This note was transcribed by sarina [Harsh Martin]. I, Dr. Lynda Orozco personally performed the history, physical exam, and medical decision making; and confirmed the accuracy of the information in the transcribed note. Authenticated by Dr. Lynda Orozco on 03/01/17 at 16:34. Physician Certification 2 Midnight Certification Type: Admission for Inpatient Services Order for Inpatient Services The services are ordered in accordance with Medicare regulations or non- Medicare payer requirements, as applicable. In the case of services not specified as inpatient-only, they are appropriately provided as inpatient services in accordance with the 2-midnight benchmark. Estimated LOS (days): 3 days is the estimated time the patient will need to remain in the hospital, assuming treatment plan goals are met and no additional complications. Post-Hospital Plan: Not yet determined Harsh Martin Mar 01, 2017 16:30 Lynda Orozco MD Mar 01, 2017 16:34
[2017-03-01] MEDS: SODIUM CHLOR 0.9% 1000 ML INJ 1,000 ML IV SCH (16:41)
[2017-03-01] MEDS: HEPARIN SODIUM - SQ 10,000 UNITS/ML VIAL SQ SCH ×2 (16:41→23:43)
[2017-03-01] MEDS: PIPERACIL-TAZO 4.5 GM PREMIX 100 ML IV SCH (20:59)
[2017-03-01] MEDS: SODIUM CHLORIDE 0.9% FLUSH 10 ML FLUSH IV FLUSH SCH (20:59)
[2017-03-02] VITALS (10 sets, daily range): BP systolic 98–155; BP diastolic 49–67; PULSE 73–97; RESP 18–20; TEMP 97.8–98.8; O2SAT 93–96
[2017-03-02] MEDS: PIPERACIL-TAZO 4.5 GM PREMIX 100 ML IV SCH ×2 (02:16→05:28)
[2017-03-02] MEDS: SODIUM CHLOR 0.9% 1000 ML INJ 1,000 ML IV SCH (02:19)
[2017-03-02] MEDS ORDERED: NYSTATIN SUSP 500,000 U/5 ML CUP SWISH-SWAL ONE (02:45)
[2017-03-02] MEDS: RESP: ALBUTEROL 2.5 MG/IPRATROPIUM 0.5 MG NEB (SCH) INH ×4 (03:43→21:41)
[2017-03-02] MEDS: guaiFENesin/DEXTROMETHORPHAN 200 MG/20 MG/10 ML CUP PO PRN ×3 (03:53→22:49)
[2017-03-02] MEDS: HEPARIN SODIUM - SQ 10,000 UNITS/ML VIAL SQ SCH ×3 (05:28→21:28)
[2017-03-02 06:33] LABS: AUTOMATED NEUTROPHIL # 12.1 TH/MM3 (1.8-7.7); BASOPHIL % 0.2 % (0.0-2.0); EOSINOPHIL # 0.1 TH/MM3 (0-0.4); EOSINOPHIL % 0.4 % (0.0-4.0); HEMATOCRIT 28.2 % (35.0-46.0); LYMPH % 8.4 % (9.0-44.0); LYMPHOCYTE # 1.2 TH/MM3 (1.0-4.8); MEAN CELL VOLUME 84.5 FL (80.0-100.0); MEAN CORPUSCULAR HEMOGLOBIN 27.8 PG (27.0-34.0); MEAN CORPUSCULAR HGB CONC 32.9 % (32.0-36.0); MONO % 7.2 % (0.0-8.0); NEUT % 83.8 % (16.0-70.0); PLATELET COUNT 314 TH/MM3 (150-450); RED BLOOD COUNT 3.34 MIL/MM3 (4.00-5.30); RED CELL DISTRIBUTION WIDTH 13.6 % (11.6-17.2); WHITE BLOOD COUNT 14.4 TH/MM3 (4.0-11.0)
[2017-03-02 06:35] LABS: HEMO FLAGS DIFF FINAL
[2017-03-02 07:08] LABS: POTASSIUM 2.3 MEQ/L (3.5-5.1)
[2017-03-02] MEDS ORDERED: LACTATED RINGER'S 1000 ML IV PRN (08:45)
[2017-03-02] MEDS ORDERED: METOPROLOL TARTRATE 25 MG TAB PO PRN (08:45)
[2017-03-02] MEDS ORDERED: CHLORHEXIDINE GLUCONATE 2 % 1 PACK (2 CLOTHS) TOPICAL PRN (08:45)
[2017-03-02] MEDS ORDERED: INSULIN HUMAN REGULAR 1,000 UNITS/10 ML VIAL SQ PRN (08:45)
[2017-03-02] MEDS ORDERED: SODIUM CHLORID 0.9% 500 ML IV PRN (08:45)
[2017-03-02] MEDS: SODIUM CHLORIDE 0.9% FLUSH 10 ML FLUSH IV FLUSH SCH ×2 (08:46→21:29)
[2017-03-02] MEDS: POTASSIUM CHLOR 20 MEQ PREMIX 100 ML IV SCH ×2 (08:46→10:57)
[2017-03-02] MEDS ORDERED: POTASSIUM CHLORIDE 20 MEQ CONTROLLED RELEASE TAB PO ONE (09:00)
[2017-03-02] MEDS ORDERED: VANCOMYCIN INJ 1,600 MG in SODIUM CHLORID 0.9% 500 ML INJ 500 ML IV SCH (09:00)
[2017-03-02] MEDS: AZITHROMYCIN 250 MG TAB PO SCH (12:08)
--- NOTE | 2017-03-02 12:59 | HHI.PR ---
Subjective Remarks patient seen and advised today in follow-up for pneumonia. Reports improvement in respiratory status although still quite symptomatic with cough. She feels that the breathing treatments are helping. Potassium is low at 2.3. Leukocytosis improved. Patient continues to complain of mouth discomfort although there is no appreciable findings on exam. Care plan discussed with Eliel HUSAIN Objective Vitals Vital Signs Date Time Temp Pulse Resp B/P (MAP) Pulse Ox O2 Delivery O2 Flow Rate FiO2 03/02/17 09:28 95 Nasal Cannula 2.00 03/02/17 08:00 98.5 73 18 114/65 (81) 94 03/02/17 04:00 98.4 74 20 99/50 (66) 93 03/02/17 00:00 98.2 76 20 98/49 (65) 94 03/01/17 21:17 93 Nasal Cannula 2.00 03/01/17 20:00 96.9 71 20 131/63 (85) 96 03/01/17 16:14 03/01/17 16:05 92 Nasal Cannula 2.00 03/01/17 16:00 97.4 70 20 133/66 (88) 93 03/01/17 15:42 70 18 141/77 (98) 96 Nasal Cannula 2.00 03/01/17 14:32 63 18 141/55 (83) 96 Nasal Cannula 2.00 I/O 03/01/17 03/01/17 03/01/17 03/02/17 03/02/17 03/02/17 07:00 15:00 23:00 07:00 15:00 23:00 Intake Total 2100 ml 1651 ml 480 ml 1147 ml Balance 2100 ml 1651 ml 480 ml 1147 ml Intake Oral 720 ml 480 ml 300 ml IV Total 2100 ml 931 ml 847 ml # Voids 4 2 # Bowel Movements 1 0 Result Diagram: 03/02/17 0435 03/02/17 0435 Imaging Last Impressions Chest X-Ray 03/01/17 1208 Signed Impressions: Service Date/Time: Wednesday, March 01, 2017 12:46 - CONCLUSION: Background lung changes characteristic of obstructive airways disease. No acute cardiopulmonary abnormality is identified. Peng Monsalve MD Lung Scan-V Nuclear Medicine 03/01/17 0000 Signed Impressions: Service Date/Time: Wednesday, March 01, 2017 14:53 - CONCLUSION: 2 and possibly 3 matched defects are identified. Findings are intermediate probability for PE. Peng Monsalve MD Lower Extremity Ultrasound 03/01/17 0000 Signed Impressions: Service Date/Time: Wednesday, March 01, 2017 14:07 - CONCLUSION: No DVT in either lower extremity. Ethan Bravo MD Chest CT 03/01/17 0000 Signed Impressions: Service Date/Time: Wednesday, March 01, 2017 13:49 - CONCLUSION: 1. There are COPD changes. There is tubular bronchiectasis with inflammatory appearing tree in bud infiltrate suggesting mucus impaction with inflammatory changes in the end in airway. Atypical pneumonia could also have this appearance as well. 2. 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 Benjie Cohen MD Objective Remarks Oropharynx is clear, upper dentures and no yeast appreciated GENERAL: This is a well-nourished, well-developed patient, in no apparent distress. CARDIOVASCULAR: Regular rate and rhythm without murmurs, gallops, or rubs. RESPIRATORY: Wheezes on the left worse than right. Breath sounds equal bilaterally. GASTROINTESTINAL: Abdomen soft, non-tender, nondistended. Normal active bowel sounds MUSCULOSKELETAL: Extremities without clubbing, cyanosis, or edema. NEURO: Alert & Oriented x4 to person, place, time, situation. Moves all ext x4 A/P Problem List: (1) Hypoxia ICD Code: R09.02 - Hypoxemia Status: Acute Plan: Improves, continue oxygenation and treatment of both presumed COPD and acute pneumonia (2) Hypokalemia ICD Code: E87.6 - Hypokalemia Status: Acute Plan: Replace, check mag (3) Acute kidney injury ICD Code: N17.9 - Acute kidney failure, unspecified Plan: Resolved with IV hydration (4) Leucocytosis ICD Code: D72.829 - Elevated white blood cell count, unspecified Plan: Improved (5) Pneumonia ICD Code: J18.9 - Pneumonia, unspecified organism Status: Acute Plan: Continue with Levaquin, azithromycin Follow clinically Discharge Planning 1-2 days pending O2 needs and improvement Problem Qualifiers (1) Pneumonia: Qualified Codes: J18.9 - Pneumonia, unspecified organism Lisa Knight MD Mar 02, 2017 12:59
[2017-03-02] MEDS: BENZOCAINE-MENTHOL (SUGAR FREE) 15 MG-3.6 MG LOZENGE BUCCAL PRN (15:39)
[2017-03-02] MEDS: cefTRIAXone INJ 1,000 MG in SODIUM CHLORIDE 0.9% INJ 100 ML IV SCH (17:19)
[2017-03-03] VITALS (13 sets, daily range): BP systolic 100–169; BP diastolic 58–71; PULSE 78–102; RESP 16–20; TEMP 97.7–99.5; O2SAT 91–97
[2017-03-03] MEDS: RESP: ALBUTEROL 2.5 MG/IPRATROPIUM 0.5 MG NEB (SCH) INH ×4 (03:57→21:16)
[2017-03-03] MEDS: HEPARIN SODIUM - SQ 10,000 UNITS/ML VIAL SQ SCH ×3 (05:52→21:35)
--- NOTE | 2017-03-03 07:44 | EKG ---
Date Performed: 03/01/2017 Time Performed: 13:07:08 PTAGE: 66 years EKG: Sinus rhythm MODERATE ST DEPRESSION ABNORMAL ECG NO PREVIOUS TRACING DOCTOR: Ousmane Hansen Interpretating Date/Time 03/03/2017 07:42:10
[2017-03-03 09:23] LABS: BICARBONATE 33.4 MEQ/L (21.0-32.0)
[2017-03-03 09:31] LABS: POTASSIUM 2.8 MEQ/L (3.5-5.1)
[2017-03-03] MEDS: AZITHROMYCIN 250 MG TAB PO SCH (10:02)
[2017-03-03] MEDS: SODIUM CHLORIDE 0.9% FLUSH 10 ML FLUSH IV FLUSH SCH ×2 (10:02→21:34)
[2017-03-03] MEDS ORDERED: POTASSIUM PHOSPHATE INJ 30 MMOL in SODIUM CHLOR 0.9% 250 ML INJ 250 ML IV ONE (12:00)
--- NOTE | 2017-03-03 12:32 | HHI.PR ---
Subjective Remarks Patient seen in follow-up for acute pneumonia with hypoxemia. Tolerating antibiotics well. Potassium still 2.8. Patient reports improvement of breathing subjectively Objective Vitals Vital Signs Date Time Temp Pulse Resp B/P (MAP) Pulse Ox O2 Delivery O2 Flow Rate FiO2 03/03/17 09:30 93 Nasal Cannula 3.00 03/03/17 08:00 99.0 85 18 138/64 (88) 96 03/03/17 04:41 92 Nasal Cannula 3.00 03/03/17 04:25 91 Nasal Cannula 3.00 03/03/17 04:23 94 03/03/17 04:00 99.3 102 18 152/68 (96) 93 03/03/17 00:00 97.7 90 18 125/60 (81) 93 03/02/17 21:41 93 Nasal Cannula 2.00 03/02/17 21:20 Nasal Cannula 2.00 03/02/17 20:00 97.8 86 18 124/52 (76) 96 03/02/17 16:00 98.8 96 20 155/67 (96) 93 03/02/17 15:00 97 I/O 03/02/17 03/02/17 03/02/17 03/03/17 03/03/17 03/03/17 07:00 15:00 23:00 07:00 15:00 23:00 Intake Total 480 ml 1607 ml 350 ml 480 ml Balance 480 ml 1607 ml 350 ml 480 ml Intake Oral 480 ml 660 ml 250 ml 480 ml IV Total 947 ml 100 ml # Voids 2 3 1 2 # Bowel Movements 0 1 Result Diagram: 03/02/17 0435 03/03/17 0830 Objective Remarks Oropharynx is clear, upper dentures and no yeast appreciated GENERAL: This is a well-nourished, well-developed patient, in no apparent distress. CARDIOVASCULAR: Regular rate and rhythm without murmurs, gallops, or rubs. RESPIRATORY: Wheezes on the left worse than right. Breath sounds equal bilaterally. GASTROINTESTINAL: Abdomen soft, non-tender, nondistended. Normal active bowel sounds MUSCULOSKELETAL: Extremities without clubbing, cyanosis, or edema. NEURO: Alert & Oriented x4 to person, place, time, situation. Moves all ext x4 A/P Problem List: (1) Hypoxia ICD Code: R09.02 - Hypoxemia Status: Acute Plan: Improves, continue oxygenation and treatment of both presumed (not diagnosed) COPD and acute pneumonia add IV solumedrol (2) Hypokalemia ICD Code: E87.6 - Hypokalemia Status: Acute Plan: Replace, check mag (3) Leucocytosis ICD Code: D72.829 - Elevated white blood cell count, unspecified Plan: resolved (4) Pneumonia ICD Code: J18.9 - Pneumonia, unspecified organism Status: Acute Plan: Continue with Levaquin, azithromycin Follow clinically add ISS Discharge Planning 1-2 days pending O2 needs and improvement Problem Qualifiers (1) Pneumonia: Qualified Codes: J18.9 - Pneumonia, unspecified organism Lisa Knight MD Mar 03, 2017 12:32
[2017-03-03] MEDS: BENZOCAINE-MENTHOL (SUGAR FREE) 15 MG-3.6 MG LOZENGE BUCCAL PRN (16:34)
[2017-03-03] MEDS: cefTRIAXone INJ 1,000 MG in SODIUM CHLORIDE 0.9% INJ 100 ML IV SCH (16:42)
[2017-03-03] MEDS: methylPREDNISolone SOD SUCC 40 MG/1 ML VIAL IV PUSH SCH (21:34)
[2017-03-04] VITALS (7 sets, daily range): BP systolic 132–153; BP diastolic 58–75; PULSE 79–93; RESP 20–22; TEMP 97.3–98.9; O2SAT 93–96
[2017-03-04] MEDS: guaiFENesin/DEXTROMETHORPHAN 200 MG/20 MG/10 ML CUP PO PRN ×3 (00:44→20:34)
[2017-03-04] MEDS ORDERED: diphenhydrAMINE HCL 25 MG CAP PO ONE (02:00)
[2017-03-04] MEDS: RESP: ALBUTEROL 2.5 MG/IPRATROPIUM 0.5 MG NEB (SCH) INH ×4 (03:08→21:24)
[2017-03-04] MEDS: HEPARIN SODIUM - SQ 10,000 UNITS/ML VIAL SQ SCH ×3 (06:24→21:27)
[2017-03-04 06:55] LABS: POTASSIUM 3.3 MEQ/L (3.5-5.1)
[2017-03-04 06:58] LABS: BICARBONATE 34.4 MEQ/L (21.0-32.0)
[2017-03-04] MEDS: methylPREDNISolone SOD SUCC 40 MG/1 ML VIAL IV PUSH SCH ×2 (09:47→20:34)
[2017-03-04] MEDS: AZITHROMYCIN 250 MG TAB PO SCH (09:48)
[2017-03-04] MEDS: SODIUM CHLORIDE 0.9% FLUSH 10 ML FLUSH IV FLUSH SCH ×2 (09:48→20:32)
--- NOTE | 2017-03-04 11:54 | HHI.PR ---
Subjective Remarks Patient seen in follow-up for pneumonia. Respiratory status is improved. No further events on telemetry. Objective Vitals Vital Signs Date Time Temp Pulse Resp B/P (MAP) Pulse Ox O2 Delivery O2 Flow Rate FiO2 03/04/17 10:05 95 Nasal Cannula 3.00 03/04/17 07:50 97.3 93 20 153/64 (93) 96 03/03/17 23:43 99.5 96 20 169/71 (103) 92 03/03/17 21:15 94 Nasal Cannula 2.00 03/03/17 20:00 92 Nasal Cannula 3.00 03/03/17 20:00 97 03/03/17 20:00 99.5 96 19 134/58 (83) 97 03/03/17 16:00 99.3 83 16 100/59 (73) 92 03/03/17 15:00 86 03/03/17 12:00 98.2 81 20 109/61 (77) 92 I/O 03/03/17 03/03/17 03/03/17 03/04/17 03/04/17 03/04/17 07:00 15:00 23:00 07:00 15:00 23:00 Intake Total 480 ml 999 ml 81 ml Balance 480 ml 999 ml 81 ml Intake Oral 480 ml 720 ml IV Total 279 ml 81 ml # Voids 2 2 1 # Bowel Movements 1 Result Diagram: 03/02/17 0435 03/04/17 0625 Objective Remarks GENERAL: This is a well-nourished, well-developed patient, in no apparent distress. CARDIOVASCULAR: Regular rate and rhythm without murmurs, gallops, or rubs. RESPIRATORY: Improved air flow bilaterally without wheezes GASTROINTESTINAL: Abdomen soft, non-tender, nondistended. Normal active bowel sounds MUSCULOSKELETAL: Extremities without clubbing, cyanosis, or edema. NEURO: Alert & Oriented x4 to person, place, time, situation. Moves all ext x4 A/P Problem List: (1) Hypoxia ICD Code: R09.02 - Hypoxemia Status: Acute Plan: Resolved, continue with antibiotics and IV steroids and nebulized bronchodilators We'll check ABG Discussed with respiratory therapy at bedside (2) Hypokalemia ICD Code: E87.6 - Hypokalemia Status: Acute Plan: Continue replacement, mag normal (3) Pneumonia ICD Code: J18.9 - Pneumonia, unspecified organism Status: Acute Plan: Continue with Levaquin, azithromycin Follow clinically Incentive spirometry Discharge Planning 1-2 days pending O2 needs and improvement Problem Qualifiers (1) Pneumonia: Qualified Codes: J18.9 - Pneumonia, unspecified organism Lisa Knight MD Mar 04, 2017 11:54
[2017-03-04] MEDS ORDERED: POTASSIUM PHOSPHATE INJ 30 MMOL in SODIUM CHLOR 0.9% 250 ML INJ 250 ML IV ONE (12:00)
[2017-03-04 13:54] LABS: BLOOD GAS BASE EXCESS 7.8 mmol/L (-2-2); BLOOD GAS CARBOXYHEMOGLOBIN 1.7 % (0-4); BLOOD GAS HCO3 32 mmol/L (22-26); BLOOD GAS O2 HGB SATURATION 90 % (90-100); BLOOD GAS OXYGEN CONTENT 10.6 Vol % (12.0-20.0); BLOOD GAS PCO2 42 mmHG (38-42); BLOOD GAS PO2 60 mmHG (61-120); BLOOD GAS TOTAL HGB 8.3 G/DL (12.0-16.0); CRITICAL VALUE NO; DRAW SITE RT RADIAL; FIO2 21 %; NUMBER OF ARTERIAL PUNCTURES 1; OXYGEN DEVICE RA; STAT NO; TEMP CORR TO 98.6; ULNAR PULSE PRESENT
[2017-03-04] MEDS: BENZOCAINE-MENTHOL (SUGAR FREE) 15 MG-3.6 MG LOZENGE BUCCAL PRN ×2 (14:08→20:34)
[2017-03-04] MEDS: cefTRIAXone INJ 1,000 MG in SODIUM CHLORIDE 0.9% INJ 100 ML IV SCH (17:45)
[2017-03-05] VITALS (10 sets, daily range): BP systolic 106–182; BP diastolic 65–79; PULSE 78–96; RESP 16–24; TEMP 96.5–98.1; O2SAT 91–96
[2017-03-05] MEDS: RESP: ALBUTEROL 2.5 MG/IPRATROPIUM 0.5 MG NEB (SCH) INH ×4 (03:29→19:21)
[2017-03-05] MEDS: BENZOCAINE-MENTHOL (SUGAR FREE) 15 MG-3.6 MG LOZENGE BUCCAL PRN ×4 (05:15→20:25)
[2017-03-05] MEDS: HEPARIN SODIUM - SQ 10,000 UNITS/ML VIAL SQ SCH ×3 (05:15→21:43)
[2017-03-05] MEDS ORDERED: PHARMACY ORDERED LAB ONE (08:45)
[2017-03-05] MEDS: AZITHROMYCIN 250 MG TAB PO SCH (09:00)
[2017-03-05] MEDS: methylPREDNISolone SOD SUCC 40 MG/1 ML VIAL IV PUSH SCH (09:31)
[2017-03-05] MEDS: SODIUM CHLORIDE 0.9% FLUSH 10 ML FLUSH IV FLUSH SCH ×2 (09:32→20:24)
[2017-03-05] MEDS: guaiFENesin/DEXTROMETHORPHAN 200 MG/20 MG/10 ML CUP PO PRN ×3 (09:33→20:24)
--- NOTE | 2017-03-05 11:27 | HHI.PR ---
Subjective Remarks Patient seen and evaluated in follow-up for kidney acquired pneumonia and probable underlying COPD. Hypoxemic on room air likely requiring oxygen at home. This discussed with patient. Incentive spirometry use education was provided the bedside. Discharge planning discussed with patient Objective Vitals Vital Signs Date Time Temp Pulse Resp B/P (MAP) Pulse Ox O2 Delivery O2 Flow Rate FiO2 03/05/17 09:00 96 Nasal Cannula 2.00 03/05/17 08:10 96 Nasal Cannula 3.00 03/05/17 08:00 96.5 88 16 165/70 (101) 95 03/05/17 04:00 97.2 94 20 106/66 (79) 93 03/05/17 00:00 97.6 91 24 142/74 (96) 91 03/04/17 21:25 95 Nasal Cannula 3.00 03/04/17 20:00 97.4 90 22 137/58 (84) 95 03/04/17 19:00 Nasal Cannula 3.00 03/04/17 15:50 98.9 87 20 147/75 (99) 93 03/04/17 11:50 98.4 81 20 132/68 (89) 93 I/O 03/04/17 03/04/17 03/04/17 03/05/17 03/05/17 03/05/17 07:00 15:00 23:00 07:00 15:00 23:00 Intake Total 81 ml 2069 ml 720 ml Balance 81 ml 2069 ml 720 ml Intake Oral 1507 ml 720 ml IV Total 81 ml 562 ml # Voids 1 7 3 # Bowel Movements 2 1 Result Diagram: 03/02/17 0435 03/05/17 0540 Objective Remarks GENERAL: This is a well-nourished, well-developed patient, in no apparent distress. CARDIOVASCULAR: Regular rate and rhythm without murmurs, gallops, or rubs. RESPIRATORY: Improved air flow bilaterally without wheezes GASTROINTESTINAL: Abdomen soft, non-tender, nondistended. Normal active bowel sounds MUSCULOSKELETAL: Extremities without clubbing, cyanosis, or edema. NEURO: Alert & Oriented x4 to person, place, time, situation. Moves all ext x4 A/P Problem List: (1) Hypoxia ICD Code: R09.02 - Hypoxemia Status: Acute Plan: Resolved, continue with PO antibiotics and PO steroids and nebulized bronchodilators ABG shows hypoxemia Discussed with respiratory therapy at bedside (2) Hypokalemia ICD Code: E87.6 - Hypokalemia Status: Acute Plan: Hypokalemia is improved (3) Pneumonia ICD Code: J18.9 - Pneumonia, unspecified organism Status: Acute Plan: Continue with po abx Follow clinically Incentive spirometry use adequate Discharge Planning possibly in am pending O2 needs and improvement Problem Qualifiers (1) Pneumonia: Qualified Codes: J18.9 - Pneumonia, unspecified organism Lisa Knight MD Mar 05, 2017 11:27
[2017-03-05] MEDS: CEFUROXIME AXETIL 500 MG TAB PO SCH ×2 (12:38→20:24)
[2017-03-05] MEDS ORDERED: POTASSIUM PHOSPHATE INJ 30 MMOL in SODIUM CHLOR 0.9% 250 ML INJ 250 ML IV ONE (13:00)
[2017-03-05] MEDS: predniSONE 20 MG TAB PO SCH (20:24)
[2017-03-06] VITALS: BP 187/82; PULSE 98; RESP 18; TEMP 96.8; O2SAT 94
[2017-03-06] MEDS: HEPARIN SODIUM - SQ 10,000 UNITS/ML VIAL SQ SCH ×2 (06:07→13:22)
[2017-03-06 08:00] VITALS: BP 134/64; PULSE 84; RESP 18; TEMP 97.2; O2SAT 96
[2017-03-06] MEDS: RESP: ALBUTEROL 2.5 MG/IPRATROPIUM 0.5 MG NEB (SCH) INH ×2 (08:12→14:09)
[2017-03-06 08:13] LABS: BICARBONATE 31.8 MEQ/L (21.0-32.0); POTASSIUM 4.5 MEQ/L (3.5-5.1)
[2017-03-06 08:15] VITALS: O2SAT 98
[2017-03-06] MEDS: CEFUROXIME AXETIL 500 MG TAB PO SCH (09:03)
[2017-03-06] MEDS: predniSONE 20 MG TAB PO SCH (09:05)
[2017-03-06] MEDS: AZITHROMYCIN 250 MG TAB PO SCH (09:05)
[2017-03-06] MEDS: SODIUM CHLORIDE 0.9% FLUSH 10 ML FLUSH IV FLUSH SCH (09:14)
[2017-03-06 12:00] VITALS: BP 138/69; PULSE 84; RESP 18; TEMP 97.5; O2SAT 96
[2017-03-06] MEDS ORDERED: NEBULIZER1 MI1 (12:13)
[2017-03-06] MEDS ORDERED: VENTAER INH (12:13)
[2017-03-06] MEDS ORDERED: ALBU0.08 NEB (12:13)
[2017-03-06] MEDS ORDERED: DOXY100C PO (12:13)
[2017-03-06] MEDS ORDERED: OXYGENTANK NAS.CANULA (12:15)
[2017-03-06] MEDS ORDERED: PRED20 PO (12:15)
[2017-03-06] MEDS ORDERED: NON-FORMULARY DRUG (Losartan-Hydrochlorothiazide (Hyzaar) 1 TAB) PO SCH (12:45)
[2017-03-06] MEDS ORDERED: METOPROLOL TARTRATE 50 MG TAB PO SCH (13:00)
[2017-03-06] MEDS ORDERED: LOSARTAN 50 MG TAB PO SCH (13:00)
[2017-03-06] MEDS ORDERED: HYDROCHLOROTHIAZIDE 25 MG TAB PO SCH (13:00)
--- NOTE | 2017-03-06 13:14 | HHI.DS ---
Discharge Summary Admission Date Mar 01, 2017 at 14:44 Discharge Date: Mar 06, 2017 Admitting Diagnosis acute pneumonia, hypoxia, hypokalemia (1) Hypoxia ICD Code: R09.02 - Hypoxemia Status: Acute (2) Hypokalemia ICD Code: E87.6 - Hypokalemia Status: Acute (3) Pneumonia ICD Code: J18.9 - Pneumonia, unspecified organism Status: Acute Procedures none Brief History - From Admission Written by Harsh Martin, acting as scribe for Dr. Orozco on 03/01/17 at 16: 09. 66-year-old female with known history of hypertension, stroke, tobacco use who presented to hospital because of flulike symptoms to include sinus congestion, cough, phlegm production, weakness, fever, nausea, vomiting, diaphoresis. Patient states that she came down to stay with her uncle and he had fallen and fractured his hip. She has been going and visiting him in the facility 2 times a day since he fell. Her symptoms started approximately 3 weeks ago. Over the last 2-3 days she has been experiencing worsening upper respiratory symptoms and constitutional symptoms to include sinus congestion, cough with yellow phlegm production, weakness, nausea, vomiting, diarrhea, fever. Patient has been using Mucinex without any significant improvement. Patient indicates that she has had nausea and vomiting to the point where she can only tolerate liquids at this time. She does not eat anything solid for 2- 3 days. She has developed watery stools. Patient had workup done emergency department found to have multiple medical illnesses with hypoxia, pneumonia, leukocytosis, acute kidney injury. Patient significantly ill clinically and will be admitted for further evaluation. IV antibiotics. CBC/BMP: 03/02/17 0435 03/06/17 0725 Significant Findings Laboratory Tests Test 03/04/17 06:25 03/04/17 13:45 03/05/17 05:40 03/06/17 07:25 Random Glucose 240 MG/DL (74-106) 164 MG/DL (74-106) Potassium Level 3.3 MEQ/L (3.5-5.1) Chloride Level 97 MEQ/L (98-107) Carbon Dioxide Level 34.4 MEQ/L (21.0-32.0) Estimat Glomerular Filtration Rate 88 ML/MIN (>89) 75 ML/MIN (>89) Blood Gas HCO3 32 mmol/L (22-26) Blood Gas Base Excess 7.8 mmol/L (-2-2) Arterial Blood pH 7.49 (7.380-7.420) Arterial Blood Partial Pressure O2 60 mmHG (61-120) Arterial Blood Oxygen Content 10.6 Vol % (12.0-20.0) Blood Gas Hemoglobin 8.3 G/DL (12.0-16.0) Imaging Last Impressions Chest X-Ray 03/01/17 1208 Signed Impressions: Service Date/Time: Wednesday, March 01, 2017 12:46 - CONCLUSION: Background lung changes characteristic of obstructive airways disease. No acute cardiopulmonary abnormality is identified. Peng Monsalve MD Lung Scan-[facility] Nuclear Medicine 03/01/17 0000 Signed Impressions: Service Date/Time: Wednesday, March 01, 2017 14:53 - CONCLUSION: 2 and possibly 3 matched defects are identified. Findings are intermediate probability for PE. Peng Monsalve MD Lower Extremity Ultrasound 03/01/17 0000 Signed Impressions: Service Date/Time: Wednesday, March 01, 2017 14:07 - CONCLUSION: No DVT in either lower extremity. Ethan Bravo MD Chest CT 03/01/17 0000 Signed Impressions: Service Date/Time: Wednesday, March 01, 2017 13:49 - CONCLUSION: 1. There are COPD changes. There is tubular bronchiectasis with inflammatory appearing tree in bud infiltrate suggesting mucus impaction with inflammatory changes in the end in airway. Atypical pneumonia could also have this appearance as well. 2. 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 Benjie Cohen MD PE at Discharge GENERAL: This is a well-nourished, well-developed patient, in no apparent distress. CARDIOVASCULAR: Regular rate and rhythm without murmurs, gallops, or rubs. RESPIRATORY: Improved air flow bilaterally without wheezes GASTROINTESTINAL: Abdomen soft, non-tender, nondistended. Normal active bowel sounds MUSCULOSKELETAL: Extremities without clubbing, cyanosis, or edema. NEURO: Alert & Oriented x4 to person, place, time, situation. Moves all ext x4 Pt update on day of discharge Doing well, walk test failed with 87% after exertion. Care plan and discharge plan discussed with patient and with case management Hospital Course Patient was seen and treated for pneumonia. Patient has significant underlying long tobacco history. She likely has COPD but has not been diagnosed with that at this time. She was persistently hypoxemic despite therapy with steroids, antibiotics and nebulizer dilators. She did qualify for oxygen on her home walk test. She will benefit from outpatient pulmonary function tests with her pneumonia improves. Pt Condition on Discharge: Good Discharge Disposition: Discharge Home Discharge Time: > 30 minutes Discharge Instructions DIET: Follow Instructions for: As Tolerated, No Restrictions Activities you can perform: Regular-No Restrictions Follow up Referrals: PCP Follow-up - 2 Weeks New Medications: Albuterol 18 GM Inh (Ventolin Hfa 18 GM Inh) 90 Mcg/Act Aer 2 PUFF INH Q4H PRN for SHORTNESS OF BREATH, #1 INHALER 0 Refills Albuterol Neb (Albuterol Neb) 2.5 Mg/3 Ml Neb 2.5 MG NEB Q4HR NEB PRN for SHORTNESS OF BREATH, #60 NEBULE 0 Refills Doxycycline Hyclate (Doxycycline Hyclate) 100 Mg Cap 100 MG PO BID for Infection, #8 CAP 0 Refills Nebulizer (Nebulizer) 1 Mis Mis EA .ROUTE DIRECTED for Breathing Treatment, #1 0 Refills Oxygen tank (Oxygen tank) 1 Ea Tank LITER LES.CANULA CONTINUOUS for HYPOXEMIA PREVENTION, #1 Oxygen Concentrator Portable Gaseous 2 L/min via Nasal Cannula Continuous For 99 months Prednisone (Prednisone) 20 Mg Tab 20 MG PO DIRECTED for Inflammation, #20 TAB 0 Refills 40 MG twice a day x 3 days, then 20 MG daily x 3 days, then 10 MG daily x 3 days Lisa Knight MD Mar 06, 2017 13:14
[2017-03-06 16:00] VITALS: BP 133/75; PULSE 80; RESP 18; TEMP 98; O2SAT 97
== END 2017-03-06 18:35 | disposition home or self-care (01) | DRG 190 ==
LOC: PHED 11:49 → PHEDA 14:44 → PH3A 15:58
PROVIDERS: ADMIT Hospitalist; ATTEND Hospitalist
DX: J44.0 Chronic obstructive pulmonary disease with (acute) lower respiratory infection (principal); J18.9 Pneumonia, unspecified organism; N17.9 Acute kidney failure, unspecified; Z99.81 Dependence on supplemental oxygen; E86.0 Dehydration; R09.02 Hypoxemia; E87.6 Hypokalemia; I10 Essential (primary) hypertension; R11.2 Nausea with vomiting, unspecified; Y95 Nosocomial condition; Z86.73 Personal history of transient ischemic attack (TIA), and cerebral infarction without residual deficits; Z87.891 Personal history of nicotine dependence; Z91.041 Radiographic dye allergy status
CPT/HCPCS: 36600; 71010; 71250; 78582; 80048; 80053; 81001; 82550; 82565; 82805; 83605; 83690; 83735; 84484; 85025; 85379; 87040; 87070; 87205; 87449; 87804; 93005; 93970; 94150; 94620; 94640; 94664; 96361; 96365; 96368; 96375; A9540; A9567; J0456; J0696; J1644; J1956; J2405; J2543; J2920; J3370; J3475; J3480; J7030; J7040; J7050; J7512